=== PATIENT | female | born 1970 | race Caucasian/White ===

== ENCOUNTER → 2017-06-19 | Outpatient (CLI) | payer BC | LOC: MC.RAD 14:18 | DX: Z12.31 Encounter for screening mammogram for malignant neoplasm of breast (principal) ==

== ENCOUNTER 2020-09-27 09:32 | Day surgery (SDC) | payer BC ==
[~2020-09-27] VITALS: Ht 162.6 cm; Wt 65.1 kg
[2020-09-27] MEDS ORDERED: ADDERALL XR25 MG PO (10:10)
[2020-09-27] MEDS ORDERED: ATIVAN 0.50.5 MG/TAB PO (10:10)
[2020-09-27 10:11] VITALS: BP 119/85; PULSE 106; TEMP 98.1
[2020-09-27] MEDS ORDERED: [UNRECOGNIZED DRUG - OTHER] PO (10:11)
[2020-09-27] MEDS ORDERED: ETHI PO (10:11)
[2020-09-27 11:35] VITALS: BP 112/79; PULSE 93; TEMP 98.2
[2020-09-27 11:45] VITALS: BP 117/84; PULSE 90
[2020-09-27 12:00] VITALS: BP 118/82; PULSE 86
[2020-09-27 12:20] VITALS: BP 117/89; PULSE 97
--- NOTE | 2020-09-27 12:24 | NUR ---
PT RETURNED PER CART INTO BAY#5. PT ALERT AND SLEEPY. PT DENIES PAIN OR NAUSEA AT THIS TIME. LUNGS CLEAR, HRR, BOWEL SOUNDS PRESENT. WILL CONT TO MONITOR.
--- NOTE | 2020-09-27 12:27 | NUR ---
DR MORENO ORDERED WARM WATER ENEMA TO STRAIN FOR POLYP. ENEMA DONE X1. PT TOLERATED WELL. WILL CONT TO MONITOR PROGRESS. TOLERATING MISAEL CRACKERS AND APPLE JUICE WITOUT NAUSEA OR VOMITING.
[2020-09-27 12:55] VITALS: BP 119/76; PULSE 91
--- NOTE | 2020-09-27 13:37 | NUR ---
WARM WATER ENEMA DONE FOR THE SECOND TIME. SPONGE LIKE PIECE NOTED. PLACED PIECE IN LAB APPROPRIATE CUP AND TAKEN TO LAB PER SARAH COX. IV DC'D. PT TOLERATED APPLE JUICE AND MISAEL CRACKERS WITHOUT DIFFICULTY. DENIES PAIN OR NAUSEA.
--- NOTE | 2020-09-27 13:41 | NUR ---
DR MORENO NOTIFIED OF THE POLYP COLLECTION. PT DISCHARGED PER PT ENTRANCE PER . PT DC'D INTO FAMILY CAR. DRIVING.
== END 2020-09-27 13:10 | disposition home or self-care (01) ==
LOC: SDCO 09:32
DX: Z12.11 Encounter for screening for malignant neoplasm of colon (principal); D12.4 Benign neoplasm of descending colon; D12.8 Benign neoplasm of rectum; F33.1 Major depressive disorder, recurrent, moderate; F34.1 Dysthymic disorder; F41.9 Anxiety disorder, unspecified; F98.8 Other specified behavioral and emotional disorders with onset usually occurring in childhood and adolescence; Z87.891 Personal history of nicotine dependence; Z20.828 Contact with and (suspected) exposure to other viral communicable diseases; Z79.3 Long term (current) use of hormonal contraceptives
CPT/HCPCS: J2704; J7120